=== PATIENT | male | born 1985 | race Caucasian/White ===

== ENCOUNTER 2019-12-20 10:04 | Day surgery (SDC) | payer OTHER ==
[2019-12-16 13:18] LABS: HEMATOCRIT 41.3 % (37.9-51.0); HEMOGLOBIN 14.3 g/dL (13.5-17.0); MEAN CORPUSCULAR HGB CONC 34.6 g/dL (32.0-36.0); MEAN CORPUSCULAR VOLUME 84 fl (80-97); PLATELET COUNT 357 10^3/uL (150-450); RED BLOOD COUNT 4.91 10^6/uL (4.35-5.55); RED CELL DISTRIBUTION WIDTH 13.2 % (11.5-14.0); WHITE BLOOD COUNT 11.7 10^3/uL (4.0-10.5)
[2019-12-16 13:26] LABS: AMORPHOUS SEDIMENT,URINE 2+ /HPF; APPEARANCE,URINE CLOUDY; BILIRUBIN,URINE NEGATIVE (NEGATIVE); COLOR,URINE YELLOW; GLUCOSE, URINE NEGATIVE (NEGATIVE); KETONES,URINE NEGATIVE (NEGATIVE); LEUKOCYTE ESTERASE,URINE NEGATIVE (NEGATIVE); NITRITE,URINE NEGATIVE (NEGATIVE); PROTEIN,URINE NEGATIVE (NEGATIVE); URINE SPECIFIC GRAVITY 1.018; UROBILINOGEN,URINE NEGATIVE mg/dL (<2.0)
[2019-12-16 13:38] LABS: ANION GAP 9 (5-19); BLOOD UREA NITROGEN 17 mg/dL (7-20); CALCIUM 9.7 mg/dL (8.4-10.2); CARBON DIOXIDE 28 mmol/L (22-30); CHLORIDE 103 mmol/L (98-107); GLUCOSE 95 mg/dL (75-110); POTASSIUM 4.4 mmol/L (3.6-5.0)
--- NOTE | 2019-12-16 16:46 | EKG REPORT ---
SEVERITY:- NORMAL ECG - SINUS BRADYCARDIA : Confirmed by: Samir Ramirez MD 16-Dec-2019 16:46:09
[~2019-12-20 10:04] MED LIST: CEFAZOLIN 2 GM/D5W RTU 2 GM/50 ML RTUPB IV PRN; FENTANYL CITRATE INJ/PF 100 MCG/2 ML AMPUL ONE; LACTATED RINGERS 1000 ML IV PRN; LIDOCAINE 0.5% INJ-PF (5 MG/ML) 50 ML SDV SUBCUT PRN; MIDAZOLAM 2 MG/2 ML INJ ONE; ONDANSETRON HCL INJ/PF 4 MG/2 ML SDV ONE; PROPOFOL INJ 200 MG/20 ML VIAL IV ONE
[2019-12-20] MEDS ORDERED: CEFAZOLIN 2 GM/D5W RTU 2 GM/50 ML RTUPB IV ONE (10:20)
[2019-12-20] MEDS ORDERED: BUPIVACAINE HCL 0.5 % INJ/PF 30 ML SDV ONE (12:20)
[2019-12-20] MEDS ORDERED: DIPHENHYDRAMINE HCL 50 MG/ML VIAL IV PRN (12:51)
[2019-12-20] MEDS ORDERED: MEPERIDINE HCL/PF INJ 25 MG/1 ML DISP.SYRIN IV PRN (12:51)
[2019-12-20] MEDS ORDERED: ONDANSETRON HCL INJ/PF 4 MG/2 ML SDV IV PRN (12:51)
[2019-12-20] MEDS ORDERED: FENTANYL CITRATE INJ/PF 100 MCG/2 ML AMPUL IV PRN ×3 (12:51)
[2019-12-20] MEDS ORDERED: PROMETHAZINE HCL INJ 25 MG/1 ML VIAL IV PRN ×2 (12:51)
[2019-12-20] MEDS ORDERED: MORPHINE SULFATE 10 MG/ML INJ IV PRN (12:51)
--- NOTE | 2019-12-20 13:46 | Discharge Summary ---
Discharge Summary (SDC) - Discharge Final Diagnosis: Right cubital tunnel syndrome Date of Surgery: 12/20/19 Discharge Date: 12/20/19 Condition: Good Treatment or Instructions: Schedule Follow Up w/ Dr. Derek Mendez @ [facility] for Surgery to be seen in 10-14 days or as scheduled [place]: [place]: [place]: May remove dressing on postop day #3, keep incision covered and dry. Ice and elevate May begin finger range of motion attempting to make full fist. Stool softener of choice when on pain medication. USE OF [id number] IBUPROFEN: Ibuprofen (Advil, Nuprin, Medipren, Motrin IB) is a medication for fever and pain control. In addition, it has anti- inflammatory effects which may be beneficial, especially in the treatment of injuries. It's best to take ibuprofen with food. Persons with ulcer disease or allergy to aspirin should notify their physician of this before taking ibuprofen. Ibuprofen can be given every four to six hours, for a total of four doses daily. Age Pain or fever dose Antiinflammatory dose 6-8 yr 200 mg (1 tab) 200 mg (1 tab) 9-11 yr 200 mg (1 tab) 200-400 mg (1-2 tab) 11-14 yr 200-400 mg (1-2 tab) 400 mg (2 tab) 15-adult 400 mg (2 tab) 600 mg (3 tab) ORAL NARCOTIC MEDICATION: You have been given a prescription for pain control. This medication is a narcotic. It's best taken with food, as nausea can result if taken on an empty stomach. Don't operate machinery or drive within six hours of taking this medication. Do not combine this medicine with alcohol, or with any medication which can cause sedation (such as cold tablets or sleeping pills) unless you get permission from the physician. Narcotics tend to cause constipation. If possible, drink plenty of fluids and eat a diet high in fiber and fruits. Please be aware that prescription narcotics also have the potential for abuse. People become addicted to these medications because of the general sense of wellbeing that they induce. This feeling along with a significant reduction in tension, anxiety, and aggression provides a stimulating seductive quality to these drugs. Once your pain is under control, we encourage you to discard your unused narcotics. Prescriptions: Oxycodone HCl/Acetaminophen [Percocet 5-325 mg Tablet] 1 tab PO Q6 PRN #25 tab PRN Reason: Discharge Activity: No Driving, No Lifting Over 10 Pounds, No Lifting/Push/Pulling Report the Following to Your Physician Immediately: Fever over 101 Degrees, Unusual Bleeding, Redness, Swelling, Warmth, Increased Soreness
--- NOTE | 2019-12-20 13:51 | Operative Report ---
Operative Report DATE OF SURGERY: 12/20/19 PREOPERATIVE DIAGNOSIS: Right cubital tunnel syndrome POSTOPERATIVE DIAGNOSIS: Same OPERATION: Right cubital tunnel release with ulnar nerve transposition SURGEON: SHIRA BERGERON ANESTHESIA: GA COMPLICATIONS: None ESTIMATED BLOOD LOSS: Minimal PROCEDURE: Indication for above procedure: 34-year-old male with numbness and tingling in the ulnar nerve distribution of the right upper extremity. Patient had physical examination findings of cubital tunnel syndrome with ulnar nerve subluxation. At that point we discussed treatment options including operative versus nonoperative intervention risk and benefits were explained patient verbalized understanding consented for surgery procedure. Procedure In Detail: Patient was seen and evaluated in the preoperative holding area. The RIGHT upper extremity was initialized and marked. Patient received 2g of Ancef IV for bacterial prophylaxis. Patient was taken back to the operative room where transferred to the operative table and placed under general anesthesia. Once they were adequately anesthetized a nonsterile tourniquet was placed on the u pper extremity. A surgical team debriefing was performed ensuring all instrumentation was available, the surgical procedure was discussed with possible concerns reviewed. The upper extremity was prepped with chlorhexidine and alcohol and draped in a sterile fashion. A timeout was done identifying correct patient, procedure and extremity everyone in attendance agree with this and verbalized no concerns. The extremity was exsanguinated the tourniquet was inflated to 250 mmHg. Skin incision was made centered over the medial epicondyle. Blunt dissection was performed. A branch proximally and a branch distally of the medial antebrachial cutaneous nerve was identified. A small peripheral veins were coagulated with bipolar cautery. Ulnar nerve was noted to be entrapped within the cubital tunnel and along the tendinous portion of the triceps tendon sitting slightly anterior at the curve proximal to the medial epicondyle. Perez's fascia along with medial head of the triceps and intermuscular septum was released. Vasculature at this level was meticulously dissected small branches coagulated with bipolar cautery. There was hypersensitivity of the nerve with manipulation at this level. Significant hourglassing at this level with thickening of the nerve proximally. Once the nerve was adequate released proximally it was neurolysed from the proximal to distal direction and FCU fascia was released. A deep fascial band was noted approximately 8 cm distal to the medial epicondyle which was released as well. First motor branches were neurolysed to allow for transposition. N sridhar was meticulously dissected and then transposed anteriorly over the medial epicondyle. Once transposed there was no residual compression proximally or distally. Isolating the medial epicondyle a adipose fascial flap was established. My nursing home assistant administrator then placed a [place] within anterior to the medial epicondyle the adipose fascial flap was then secured to the medial epicondyle with interrupted 2-0 Vicryl suture. Elbow was placed through full range of motion. There is no evidence of residual compression however there was mild compression along the leading edge of the FCU and thus a small tendinous portion was further excised. Finger dissection was placed proximally and distally to ensure adequate release. Wound was then copiously irrigated with normal saline. Tourniquet was then deflated any peripheral bleeding was controlled with bipolar cautery until the wound was dry. Subcutaneous tissues were closed with interrupted 4-0 Monocryl suture. Skin was closed with running subcuticular 4-0 Monocryl reinforced with Dermabond and Steri-Strips. 30 cc of 0.5% bupivacaine without epinephrine was injected for postoperative pain control. Soft dressing was placed. Sponge counts, instrument counts, needle counts were correct. Patient was then awoken from anesthesia. Transferred from the operating room table to the operating room stretcher. There was no intraoperative complications patient tolerated procedure well stable to PACU. Postop plan: Patient follow-up in the office in 2 weeks for wound check. Will consider physical therapy at that time at [facility] physical therapy
[2019-12-20] MEDS ORDERED: OXYCODONE-ACETAMINOPHEN 5-325 MG TABLET PO PRN (13:52)
[2019-12-20] MEDS ORDERED: ONDANSETRON HCL INJ/PF 4 MG/2 ML SDV ONE (13:52)
[2019-12-20] MEDS ORDERED: OXYCODONE-ACETAMINOPHEN 5-325 MG TABLET ONE (14:26)
[2019-12-20] MEDS ORDERED: SUCCINYLCHOLINE CHLORIDE INJ 200 MG/10 ML VIAL ONE (15:22)
[2019-12-20 15:45] VITALS: BP 113/78
== END 2019-12-20 15:47 | disposition home or self-care (01) ==
LOC: OROUT 10:04
PROVIDERS: ATTEND Orthopaedic Surgery
DX: G56.21 Lesion of ulnar nerve, right upper limb (principal); Z79.899 Other long term (current) drug therapy; K21.9 Gastro-esophageal reflux disease without esophagitis; Z03.818 Encounter for observation for suspected exposure to other biological agents ruled out; G62.9 Polyneuropathy, unspecified; R25.1 Tremor, unspecified
CPT/HCPCS: 93005; 36415; 85027; 87635; 80048; 81001; 93010; 01710; 64718; J2250; J3490; J3010; J0330; J2405; J2704; J0690; C9803; 1710

== ENCOUNTER 2020-03-20 08:58 | Day surgery (SDC) | payer OTHER ==
[2020-03-16 09:52] LABS: HEMATOCRIT 40.5 % (37.9-51.0); MEAN CORPUSCULAR HEMOGLOBIN 28.7 pg (27.0-33.4); MEAN CORPUSCULAR HGB CONC 34.7 g/dL (32.0-36.0); MEAN CORPUSCULAR VOLUME 83 fl (80-97); PLATELET COUNT 320 10^3/uL (150-450); RED BLOOD COUNT 4.89 10^6/uL (4.35-5.55); RED CELL DISTRIBUTION WIDTH 14.3 % (11.5-14.0); WHITE BLOOD COUNT 6.7 10^3/uL (4.0-10.5)
[2020-03-16 10:01] LABS: APPEARANCE,URINE SLIGHTLY-CLOUDY; BILIRUBIN,URINE NEGATIVE (NEGATIVE); COLOR,URINE AMBER; GLUCOSE, URINE NEGATIVE (NEGATIVE); KETONES,URINE 20 mg/dL (NEGATIVE); LEUKOCYTE ESTERASE,URINE NEGATIVE (NEGATIVE); NITRITE,URINE NEGATIVE (NEGATIVE); PROTEIN,URINE 30 mg/dL (NEGATIVE); UROBILINOGEN,URINE NEGATIVE mg/dL (<2.0)
[2020-03-16 10:23] LABS: ANION GAP 7 (5-19); BLOOD UREA NITROGEN 19 mg/dL (7-20); CALCIUM 10.2 mg/dL (8.4-10.2); CARBON DIOXIDE 30 mmol/L (22-30); CHLORIDE 104 mmol/L (98-107); GLUCOSE 114 mg/dL (75-110); POTASSIUM 4.4 mmol/L (3.6-5.0)
[~2020-03-20 08:58] MED LIST changes: +DEXAMETHASONE SOD PHOSPHATE INJ 4 MG/1 ML VIAL ONE; -LIDOCAINE 0.5% INJ-PF (5 MG/ML) 50 ML SDV SUBCUT PRN
[2020-03-20] MEDS ORDERED: CEFAZOLIN 2 GM/D5W RTU 2 GM/50 ML RTUPB IV ONE (09:41)
[2020-03-20] MEDS ORDERED: SUCCINYLCHOLINE CHLORIDE INJ 200 MG/10 ML VIAL ONE (10:21)
[2020-03-20] MEDS ORDERED: LIDOCAINE 1% INJ-PF (10 MG/ML) 30 ML SDV ONE (10:45)
[2020-03-20] MEDS ORDERED: BUPIVACAINE HCL 0.5 % INJ/PF 30 ML SDV ONE (10:45)
[2020-03-20] MEDS ORDERED: ONDANSETRON HCL INJ/PF 4 MG/2 ML SDV IV PRN (12:31)
[2020-03-20] MEDS ORDERED: PROMETHAZINE HCL INJ 25 MG/1 ML VIAL IV PRN ×2 (12:31)
[2020-03-20] MEDS ORDERED: DIPHENHYDRAMINE HCL 50 MG/ML VIAL IV PRN (12:31)
[2020-03-20] MEDS ORDERED: MEPERIDINE HCL/PF INJ 25 MG/1 ML DISP.SYRIN IV PRN (12:31)
[2020-03-20] MEDS ORDERED: MORPHINE SULFATE 10 MG/ML INJ IV PRN ×3 (12:31→13:38)
[2020-03-20] MEDS ORDERED: FENTANYL CITRATE INJ/PF 100 MCG/2 ML AMPUL IV PRN ×3 (12:31)
--- NOTE | 2020-03-20 12:49 | Operative Report ---
Operative Report DATE OF SURGERY: 03/20/20 PREOPERATIVE DIAGNOSIS: Persistent ulnar neuropathy right upper extremity POSTOPERATIVE DIAGNOSIS: Same OPERATION: Right revision cubital tunnel release with submuscular ulnar nerve transposition, placement of nerve wrap SURGEON: SHIRA BERGERON ANESTHESIA: GA COMPLICATIONS: None ESTIMATED BLOOD LOSS: Less than 25 cc PROCEDURE: Indication for above procedure: 35-year-old male who underwent cubital tunnel release approximately 3 months ago. Patient continued persistent ulnar nerve symptoms. Given patient's persistent ulnar nerve symptoms on the sensory distribution decision was made to proceed with operative intervention which included revision right cubital tunnel release. Risk and benefits of the surgical procedure were explained patient verbalized understanding consented for surgery procedure. Procedure In Detail: Patient was seen and evaluated in the preoperative holding area. The RIGHT upper extremity was initialized and marked. Patient received 2g of Ancef IV for bacterial prophylaxis. Patient was taken back to the operative room where transferred to the operative table and placed under general anesthesia. Once they were adequately anesthetized a surgical team debriefing was performed ensuring all instrumentation was available, the surgical procedure was discussed with possible concerns reviewed. The upper extremity was prepped with ChloraPrep and draped in a sterile fashion. A timeout was done identifying correct patient, procedure and extremity everyone in attendance agree with this and verbalized no concerns. Sterile tourniquet was applied. The extremity was exsanguinated the tourniquet was inflated to 250 mmHg. Previous skin incision was utilized and extended proximally and distally. Blunt dissection was performed. Proximal branch of the medial antebrachial cutaneous nerve and distal branch were identified and protected. The ulnar nerve was first isolated proximally within normal soft tissues adjacent to remanent intermuscular septum and triceps. Section of the triceps and intermuscular septum was excised. Nerve was neurolysed from proximal to distal to the level of the medial epicondyle. The nerve was then found distally within the muscle of the FCU. The nerve was found in normal surrounding soft tissues without abnormality. The nerve was then carefully neurolysed from proximal to distal along with distal to proximal it from significant amount of scar tissue within the FCU aponeurosis. There is significant scarring of the nerve to the fascia of the flexor pronator mass. The first motor branch was identified and neurolysed and not sacrificed. There is significant swelling and hourglassing of the nerve at the level of the medial epicondyle. There is no evidence of discontinuity throughout the course of the nerve. Small portion of scar tissue was left intact the nerve at the level of the medial epicondyle in order to avoid aggressive intraneural neurolysis. Tourniquet was then deflated. Finger dissection was performed running adjacent to the nerve proximally and distally to ensure no remanent compression. And a peripheral bleeding was controlled with bipolar cautery until the wound was dry. Three fascial slits were placed within the flexor pronator mass in order to construct a fascial sling. The central T band fascia of the flexor pronator mass was excised. This left healthy muscle belly to safely transposed the nerve anteriorly. There is additional fascial band anteriorly which was also excised to avoid compression of the nerve. Once the nerve was transposed a [employer] 12 mm x 5 cm neuro mend wrap was placed circumferentially around the nerve and secured with multiple hemoclips. The fascial sling was then reapproximated with 3-0 Vicryl suture while my campus administrative assistant placed a [place] elevator to ensure there is not over compression of the nerve.. Elbow was placed through full range of motion there is no evidence of nerve compression or kinking throughout range of motion. Nerve remained transposed anteriorly throughout range of motion. Wound was once again copiously irrigated with normal saline. Subcutaneous tissues were closed with interrupted 3-0 Monocryl suture. Skin was closed with running subcuticular 4-0 Monocryl reinforced with Dermabond and Steri-Strips. Soft dressing was loosely applied. Sponge counts, instrument counts, needle counts were correct. Patient was then awoken from anesthesia. Transferred from the operating room table to the operating room stretcher. There was no intraoperative complications patient tolerated procedure well stable to PACU. Postop plan: Patient follow in the office in 2 weeks for wound check. In the meantime we will continue physical therapy with range of motion exercises
--- NOTE | 2020-03-20 13:35 | Discharge Summary ---
Discharge Summary (SDC) - Discharge Final Diagnosis: Right cubital tunnel syndrome Date of Surgery: 03/20/20 Discharge Date: 03/20/20 Forms: ASU Anesthesia D/C Instruction, Discharge POC-Surgical Service Treatment or Instructions: Schedule Follow Up w/ Dr. Derek Bergeron @ [facility] for Surgery to be seen in 10-14 days or as scheduled [place]: [place]: [place]: May remove dressing on postop day #3, keep incision covered and dry. Ice and elevate May begin finger range of motion attempting to make full fist. Stool softener of choice when on pain medication. USE OF [id number] IBUPROFEN: Ibuprofen (Advil, Nuprin, Medipren, Motrin IB) is a medication for fever and pain control. In addition, it has anti- inflammatory effects which may be beneficial, especially in the treatment of injuries. It's best to take ibuprofen with food. Persons with ulcer disease or allergy to aspirin should notify their physician of this before taking ibuprofen. Ibuprofen can be given every four to six hours, for a total of four doses daily. Age Pain or fever dose Antiinflammatory dose 6-8 yr 200 mg (1 tab) 200 mg (1 tab) 9-11 yr 200 mg (1 tab) 200-400 mg (1-2 tab) 11-14 yr 200-400 mg (1-2 tab) 400 mg (2 tab) 15-adult 400 mg (2 tab) 600 mg (3 tab) ORAL NARCOTIC MEDICATION: You have been given a prescription for pain control. This medication is a narcotic. It's best taken with food, as nausea can result if taken on an empty stomach. Don't operate machinery or drive within six hours of taking this medication. Do not combine this medicine with alcohol, or with any medication which can cause sedation (such as cold tablets or sleeping pills) unless you get permission from the physician. Narcotics tend to cause constipation. If possible, drink plenty of fluids and eat a diet high in fiber and fruits. Please be aware that prescription narcotics also have the potential for abuse. People become addicted to these medications because of the general sense of wellbeing that they induce. This feeling along with a significant reduction in tension, anxiety, and aggression provides a stimulating seductive quality to these drugs. Once your pain is under control, we encourage you to discard your unused narcotics. Prescriptions: Oxycodone HCl/Acetaminophen [Percocet 7.5-325 mg Tablet] 1 tab PO Q6 PRN #25 tab PRN Reason: Referrals: DEREK BERGERON DO [ACTIVE STAFF] - 04/02/20 9:10 am (Please keep your follow-up appointment.) Discharge Diet: As Tolerated Respiratory Treatments at Home: Deep Breathing/Coughing, Incentive Spirometer Discharge Activity: No Lifting Over 10 Pounds, No Lifting/Push/Pulling Report the Following to Your Physician Immediately: Fever over 101 Degrees, Unusual Bleeding, Redness, Swelling, Warmth, Increased Soreness - Neurologic
[2020-03-20] MEDS ORDERED: OXYCODONE-ACETAMINOPHEN 5-325 MG TABLET PO PRN (13:38)
[2020-03-20] MEDS ORDERED: OXYCODONE-ACETAMINOPHEN 5-325 MG TABLET ONE (13:51)
[2020-03-20 16:05] VITALS: BP 101/70
== END 2020-03-20 15:10 | disposition home or self-care (01) ==
LOC: OROUT 08:58
PROVIDERS: ATTEND Orthopaedic Surgery
DX: G56.21 Lesion of ulnar nerve, right upper limb (principal); Z20.828 Contact with and (suspected) exposure to other viral communicable diseases; Z79.899 Other long term (current) drug therapy; K21.9 Gastro-esophageal reflux disease without esophagitis; F32.9 Major depressive disorder, single episode, unspecified; M19.90 Unspecified osteoarthritis, unspecified site
CPT/HCPCS: 36415; 85027; 87635; 80048; 81001; 64718; C1889; J2250; J3490; J1100; J3010; J0330; J2405; J2704; J0690; C9803; 1810